=== PATIENT | male | born 1945 | race Caucasian/White ===

== ENCOUNTER 2020-03-02 17:27 | Inpatient (IN) | payer BC ==
[2020-03-02] VITALS: BP 115/85
[~2020-03-02] VITALS: Ht 162.6 cm; Wt 75.7 kg
--- NOTE | ~2020-03-02 | PROC ---
[address] [address] PROCEDURE REPORT Name: DAVID DOMINGO Room: [address] IN .R.#: [id number] Admission: 03/02/20 Attend Phys: Claire Simmons MD Discharge: Date of : 43 Report #: [id number] THIS REPORT FOR: //name// cc: Physician not on staff Physician not on staff ~ THIS REPORT FOR: //name// For GI report, please see the Provation report in Perceptive 7 content. By: [id number] Records Staff [facility] /KISHAN
--- NOTE | ~2020-03-02 | PROC ---
[address] [address] PROCEDURE REPORT Name: DAVID DOMINGO Room: [address] IN .R.#: [id number] Admission: 03/02/20 Attend Phys: Claire Simmons MD Discharge: Date of : 43 Report #: [id number] THIS REPORT FOR: //name// cc: Physician not on staff Physician not on staff ~ THIS REPORT FOR: //name// For GI report, please see the Provation report in Perceptive 7 content. By: 1120Medical Records Staff [facility] /KISHAN
[2020-03-02 17:37] VITALS: BP 104/44
[2020-03-02] MEDS ORDERED: COREG6.25 MG PO (17:46)
[2020-03-02] MEDS ORDERED: SPIRONOLACTONE25 MG PO (17:47)
[2020-03-02] MEDS ORDERED: TRIAMTERENE/HCT1 CA1 PO (17:47)
[2020-03-02] MEDS ORDERED: HYDRALAZINE 2525 M1 PO (17:47)
[2020-03-02] MEDS ORDERED: ALLOPURINOL 10100 M3 PO (17:47)
[2020-03-02] MEDS ORDERED: PRAVACHOL 20 MG20 M1 PO (17:47)
[2020-03-02 18:07] LABS: ABSOLUTE BASOPHILS 0.1 thou/uL (0.0-0.2); ABSOLUTE LYMPHOCYTES 1.9 thou/uL (0.8-5.3); ABSOLUTE MONOCYTES 0.4 thou/uL (0.0-1.2); ABSOLUTE NEUTROPHILS 9.4 thou/uL (1.6-8.1); BASOPHILS 0.7 %; EOSINOPHILS 0.3 %; LYMPHOCYTES 16.5 %; MCH 34.2 pg (26.0-34.0); MCHC 34.2 g/dL (28.0-37.0); MONOCYTES 3.2 %; MPV 7.9 fl. (7.2-11.1); NUCLEATED RBCS 0 /100WBC; PLATELET COUNT* 332 thou/uL (150-400); POLYS 79.3 %; RBC 1.94 mil/uL (4.50-6.00); RDW-CV 13.6 % (10.5-14.5); WBC 11.8 thou/uL (4.0-11.0)
[2020-03-02 18:14] LABS: CALCIUM 8.9 mg/dL (8.5-10.1); CREATININE 3.8 mg/dL (0.6-1.3); POTASSIUM 4.2 mmol/L (3.5-5.1)
[2020-03-02 18:17] LABS: APTT 22.9 Seconds (25.0-31.3); HEMOGLOBIN 6.6 gm/dL (14.0-18.0); INR 1.1; PROTIME 11.1 Seconds (9.20-11.50)
[2020-03-02 18:18] LABS: HEMATOCRIT 19.4 % (42.0-52.0)
[2020-03-02 18:25] LABS: TOTAL BILIRUBIN 0.3 mg/dL (<0.1-1.0); TOTAL PROTEIN 6.6 g/dL (6.4-8.2)
[2020-03-02 19:54] LABS: URINE BILIRUBIN NEGATIVE (Negative); URINE BLOOD NEGATIVE (Negative); URINE CLARITY CLEAR; URINE COLOR YELLOW; URINE GLUCOSE-RANDOM NEGATIVE (Negative); URINE KETONES NEGATIVE (Negative); URINE LEUKOCYTES-REFLEX NEGATIVE (Negative); URINE NITRITE-REFLEX NEGATIVE (Negative); URINE PROTEIN NEGATIVE (Negative); URINE SPECIFIC GRAVITY 1.015 (1.005-1.030); URINE UROBILINOGEN 0.2 E.U./dl (0.2-1.0)
[2020-03-02 20:00] VITALS: BP 110/70; BP 115/85
[2020-03-02 23:45] VITALS: BP 88/45
[2020-03-03] VITALS (8 sets, daily range): BP systolic 83–126; BP diastolic 41–70
[2020-03-03 07:51] LABS: MCH 33.4 pg (26.0-34.0); MCHC 34.3 g/dL (28.0-37.0); MCV 97.4 fL (80.0-100.0); MPV 7.6 fl. (7.2-11.1); RBC 2.04 mil/uL (4.50-6.00); RDW-CV 15.4 % (10.5-14.5); WBC 10.4 thou/uL (4.0-11.0)
[2020-03-03 07:53] LABS: CALCIUM 8.4 mg/dL (8.5-10.1); CREATININE 3.8 mg/dL (0.6-1.3); MAGNESIUM 2.1 mg/dL (1.8-2.4); POTASSIUM 3.7 mmol/L (3.5-5.1)
[2020-03-03 07:54] LABS: HEMATOCRIT 19.8 % (42.0-52.0); HEMOGLOBIN 6.8 gm/dL (14.0-18.0)
[2020-03-03 09:25] LABS: % SATURATION 57 % (20-39); IRON 134 ug/dL (50-175)
[2020-03-03 15:34] LABS: HEMATOCRIT 22.6 % (42.0-52.0); HEMOGLOBIN 7.6 gm/dL (14.0-18.0)
--- NOTE | 2020-03-03 15:44 | EKG ---
[place] [address] ELECTROCARDIOGRAM REPORT Name: DAVID DOMINGO Room: [address] ADM IN M.R.#: [id number] Admission: 03/02/20 Attend Phys: Claire Simmons, Discharge: Date of : 43 Date of Service: 03/02/20 1735 Report #: [id number] THIS REPORT FOR: //name// [facility] ED Test Date: 2020-03-02 Test Time: 17:35:47 Pat Name: DAVID JOSE L Department: Room: [facility] Gender: M Cps Team Lead: KISHAN : 1945 Requested By: Hakeem Peterson Order Number: [id number] MD: Javy Gallegos Measurements Intervals [place] Rate: 85 P: 73 [place]: 140 QRS: 39 QRSD: 87 T: 59 QT: 354 QTc: 421 Interpretive Statements Sinus rhythm Baseline wander in lead(s) II,III,aVF,V4 No previous ECG available for comparison Electronically Signed On 03-03-2020 15:44:26 CDT by Javy Gallegos [email or web address] <ELECTRONICALLY SIGNED> By: Javy Gallegos MD, FACC 03/03/20 1544 1735 1735 Javy Gallegos MD, [facility] /EPI
[2020-03-03 16:09] LABS: URINE POTASSIUM-RANDOM 46.8 mmol/L
[2020-03-04 04:20] VITALS: BP 100/60
[2020-03-04 08:00] VITALS: BP 146/78
[2020-03-04 11:53] LABS: MCH 33.9 pg (26.0-34.0); MCHC 35.3 g/dL (28.0-37.0); MPV 7.5 fl. (7.2-11.1); RBC 1.95 mil/uL (4.50-6.00); RDW-CV 15.7 % (10.5-14.5); WBC 7.7 thou/uL (4.0-11.0)
[2020-03-04 12:05] LABS: HEMATOCRIT 18.7 % (42.0-52.0); HEMOGLOBIN 6.6 gm/dL (14.0-18.0)
[2020-03-04 12:10] LABS: ALBUMIN 2.5 g/dL (3.4-5.0); CALCIUM 7.9 mg/dL (8.5-10.1); CREATININE 2.9 mg/dL (0.6-1.3); MAGNESIUM 1.9 mg/dL (1.8-2.4); POTASSIUM 3.5 mmol/L (3.5-5.1); TOTAL BILIRUBIN 0.5 mg/dL (<0.1-1.0); TOTAL PROTEIN 5.3 g/dL (6.4-8.2)
[2020-03-04 13:01] VITALS: BP 91/48
[2020-03-04 13:14] VITALS: BP 104/55; BP 105/47; BP 107/49; BP 117/57
[2020-03-04 17:57] LABS: HEMATOCRIT 22.6 % (42.0-52.0)
[2020-03-04 20:00] VITALS: BP 97/50
[2020-03-05 00:10] VITALS: BP 100/52
[2020-03-05 04:00] VITALS: BP 103/56
[2020-03-05 04:15] LABS: HEMATOCRIT 20.3 % (42.0-52.0); HEMOGLOBIN 7.1 gm/dL (14.0-18.0); MCH 33.3 pg (26.0-34.0); MCHC 35.1 g/dL (28.0-37.0); MCV 95.1 fL (80.0-100.0); MPV 7.8 fl. (7.2-11.1); RBC 2.14 mil/uL (4.50-6.00); RDW-CV 15.2 % (10.5-14.5); WBC 8.7 thou/uL (4.0-11.0)
[2020-03-05 04:35] LABS: CALCIUM 7.9 mg/dL (8.5-10.1); CREATININE 3.3 mg/dL (0.6-1.3); POTASSIUM 3.6 mmol/L (3.5-5.1)
[2020-03-05 08:00] VITALS: BP 96/43
[2020-03-05 14:11] LABS: HEMATOCRIT 20.8 % (42.0-52.0); HEMOGLOBIN 7.2 gm/dL (14.0-18.0)
--- NOTE | 2020-03-05 15:35 | CON ---
[address] [address] CONSULTATION Name: DAVID DOMINGO Room: [address] IN ..#: [id number] Admission: 03/02/20 Attend Phys: Claire Simmons MD Discharge: Date of : 43 Report #: [id number] THIS REPORT FOR: //name// cc: Physician not on staff Physician not on staff ~ THIS REPORT FOR: //name// CC: Claire ARRIOLA Physician staff HISTORY OF PRESENT ILLNESS: This is a pleasant 74-year-old gentleman with past medical history significant for hypertension, hyperlipidemia, CKD, who was brought into the hospital with profound dizziness. After admission, the patient noted that for 5 days before the admission, he began having dark colored runny stool. The patient reports one episode of similar dark stool in the past. He has never had an EGD or colonoscopy in the past. The patient, however, does report weight loss of about 20-25 pounds in the last 3 months. He denies any abdominal pain, hematemesis or hematochezia. PAST MEDICAL HISTORY: Hyperlipidemia, hypertension, CKD. PAST SURGICAL HISTORY: Right knee replacement in 2017. SOCIAL HISTORY: The patient denies smoking, alcohol or recreational drug use. FAMILY HISTORY: There is no family history of colon cancer or Freeman related neoplasia. REVIEW OF SYSTEMS: A comprehensive 10-point review of systems is negative except for what was mentioned in the HPI. PHYSICAL EXAMINATION: GENERAL: The patient is alert, awake, oriented x 3. HEENT: Pupils are equal, round, reactive to light and accommodation. Mucous membranes are moist. There is no congestion. LUNGS: Clear to auscultation bilaterally. CARDIOVASCULAR: Rate and rhythm regular, S1, S2 present. ABDOMEN: Soft. There is no distention, guarding or rigidity. EXTREMITIES: Warm, well perfused. There is no edema. SKIN: Warm and dry. 1 LABORATORY DATA: Hemoglobin 6.8, hematocrit 19.8, platelet count 277, WBC count 10.4, INR 1.1. Sodium 141, potassium 3.7, chloride 108, bicarbonate 29, BUN 76, creatinine 3.8. IMAGING: CT abdomen and pelvis, this [place] [address] CONSULTATION Name: DAVID DOMINGO Room: [address]#: [id number] Admission: 03/02/20 Attend Phys: Claire Simmons MD Discharge: Date of : 43 Report #: [id number] ASSESSMENT AND PLAN: Pleasant 74-year-old male presenting with anemia and melena. The patient also reports weight loss and loss of appetite. He has never had an EGD or colonoscopy in the past. I would recommend getting an EGD and colonoscopy to investigate this further. Further recommendations will be based on results of these tests. <ELECTRONICALLY SIGNED> By: Demetrio Nguyen MD 03/05/20 1535 1139 1244MD ghazala Kwan
[2020-03-05 16:39] VITALS: BP 103/56
[2020-03-05 22:20] VITALS: BP 106/72
[2020-03-06] VITALS (8 sets, daily range): BP systolic 90–134; BP diastolic 44–63
[2020-03-06 04:42] LABS: MCH 33.6 pg (26.0-34.0); MCHC 34.7 g/dL (28.0-37.0); MCV 96.7 fL (80.0-100.0); MPV 8.1 fl. (7.2-11.1); RBC 1.76 mil/uL (4.50-6.00); WBC 9.3 thou/uL (4.0-11.0)
[2020-03-06 04:46] LABS: HEMOGLOBIN 5.9 gm/dL (14.0-18.0)
[2020-03-06 04:56] LABS: CALCIUM 7.6 mg/dL (8.5-10.1); CREATININE 2.9 mg/dL (0.6-1.3); MAGNESIUM 1.9 mg/dL (1.8-2.4); POTASSIUM 4.2 mmol/L (3.5-5.1)
[2020-03-06 11:31] LABS: HEMOGLOBIN 6.7 gm/dL (14.0-18.0)
[2020-03-06 11:32] LABS: HEMATOCRIT 19.3 % (42.0-52.0)
--- NOTE | 2020-03-06 17:06 | PATH ---
[place] [address] PATHOLOGY RPT PROCEDURE Name: WESLEY SABA Room: [address] IN M.R.#: [id number] Admission: 03/02/20 Date of : 43 Discharge: Report #: [id number] Path Case #: [id number] [facility] Accession Number: [id number] . 01 Material submitted: . PART A: duodenum - DUODENAL BIOPSY PART B: stomach - GASTRIC BIOPSY . 01 Clinical history: . A. R/O CELIAC DISEASE GI BLEED, ANEMIA, DIZZINESS . 02 Diagnosis: A. Duodenal biopsy: - Minimal nonspecific active duodenitis without significant intraepithelial lymphocytosis or villous atrophy and negative for granulomas, viral inclusions and dysplasia. See comment. . B. Gastric biopsy: - Mild nonspecific chronic gastritis, negative for Helicobacter pylori organisms, granulomas and dysplasia. (MALGORZATA:elgin; 03/06/2020) . Special stain: H. pylori immuno on B QMS 03/06/2020 1235 Local . 02 Electronically signed: . Thanh Espino MD, Pathologist NPI- [id number] . 01 Gross description: . A. The specimen is received in formalin, labeled "Wesley Saab, duodenal biopsy" and consists of 3 fragments of mejía tissue measuring between 0.3 x 0.2 cm and 0.6 x 0.3 cm which are entirely submitted in A1. . B. The specimen is received in formalin, labeled "Wesley Saab, gastric biopsy" and consists of 3 fragments of mejía tissue measuring between 0.3 x 0.2 cm and 0.4 x 0.2 cm which are entirely submitted in B1. (SDY; 03/05/2020) SYU/SYU 03/05/2020 1701 Local . 02 Pathologist provided ICD-10: K29.80, K29.50 . 02 CPT . 727018, 614899, L11647 Specimen Comment: A courtesy copy of this report has been sent to [phone], [phone], [place] [address] PATHOLOGY RPT PROCEDURE Name: WESLEY SAAB Room: [address] IN [facility]#: [id number] Admission: 03/02/20 Date of : 43 Discharge: Report #: [id number] Path Case #: [id number] Specimen Comment: [id number], Specimen Comment: Report sent to ,DR ELMORE / DR ARRIOLA Performed at: [address], [place], [place] [id number] MD Khoi Julian MD Phone: [phone] Performed at: [address] [address] [address], [place], [place] [id number] MD Thanh Espino MD Phone: [phone]
[2020-03-06 18:52] LABS: HEMATOCRIT 22.4 % (42.0-52.0); HEMOGLOBIN 7.6 gm/dL (14.0-18.0)
[2020-03-07 04:00] VITALS: BP 112/62
[2020-03-07 04:29] LABS: CALCIUM 7.9 mg/dL (8.5-10.1); CREATININE 2.7 mg/dL (0.6-1.3); MAGNESIUM 1.9 mg/dL (1.8-2.4); POTASSIUM 4.1 mmol/L (3.5-5.1)
[2020-03-07 04:40] LABS: HEMATOCRIT 21.9 % (42.0-52.0); HEMOGLOBIN 7.6 gm/dL (14.0-18.0); MCHC 34.6 g/dL (28.0-37.0); MCV 92.5 fL (80.0-100.0); MPV 8.1 fl. (7.2-11.1); RBC 2.37 mil/uL (4.50-6.00); RDW-CV 16.5 % (10.5-14.5); WBC 8.5 thou/uL (4.0-11.0)
[2020-03-07 08:30] VITALS: BP 143/74
[2020-03-07 10:57] VITALS: BP 143/74
[2020-03-07 12:14] VITALS: BP 123/68
[2020-03-07 15:46] LABS: HEMOGLOBIN 7.8 gm/dL (14.0-18.0)
[2020-03-07 16:21] VITALS: BP 102/62
[2020-03-07 20:30] VITALS: BP 131/59
[2020-03-08] VITALS: BP 105/63
[2020-03-08 04:00] VITALS: BP 106/58
[2020-03-08 05:06] LABS: HEMATOCRIT 20.9 % (42.0-52.0); HEMOGLOBIN 7.1 gm/dL (14.0-18.0)
[2020-03-08 05:28] LABS: HEMATOCRIT 20.7 % (42.0-52.0); HEMOGLOBIN 7.1 gm/dL (14.0-18.0); MCH 32.3 pg (26.0-34.0); MCHC 34.6 g/dL (28.0-37.0); MCV 93.4 fL (80.0-100.0); MPV 7.6 fl. (7.2-11.1); RBC 2.21 mil/uL (4.50-6.00); RDW-CV 16.7 % (10.5-14.5); WBC 10.2 thou/uL (4.0-11.0)
[2020-03-08 05:34] LABS: ALBUMIN 2.2 g/dL (3.4-5.0); CALCIUM 8.3 mg/dL (8.5-10.1); CREATININE 2.6 mg/dL (0.6-1.3); POTASSIUM 4.5 mmol/L (3.5-5.1); TOTAL BILIRUBIN 0.5 mg/dL (<0.1-1.0); TOTAL PROTEIN 4.9 g/dL (6.4-8.2)
[2020-03-08 08:05] VITALS: BP 125/63
[2020-03-08] MEDS ORDERED: FERROUS SULFAT325 MG PO (08:52)
[2020-03-08] MEDS ORDERED: COLACE100 MG PO (08:52)
[2020-03-08] MEDS ORDERED: OMEPRAZOLE40 MG PO (08:52)
[2020-03-08 09:45] VITALS: BP 111/60; BP 112/52; BP 115/54
[2020-03-08 14:08] LABS: HEMATOCRIT 26.2 % (42.0-52.0)
[2020-03-08 15:56] VITALS: BP 107/50
[2020-03-08 21:26] VITALS: BP 131/74
[2020-03-09 00:26] VITALS: BP 136/78
[2020-03-09 03:45] VITALS: BP 144/83
[2020-03-09 04:59] LABS: HEMOGLOBIN 8.3 gm/dL (14.0-18.0)
[2020-03-09 11:13] LABS: HEMATOCRIT 24.1 % (42.0-52.0); HEMOGLOBIN 8.4 gm/dL (14.0-18.0)
[2020-03-09 12:05] VITALS: BP 153/78
[2020-03-09 13:17] VITALS: BP 153/78
== END 2020-03-09 14:19 | disposition home or self-care (01) | DRG 377 ==
LOC: M.ERS 17:27 → M.2W 18:40 → M.TBA-ER 18:40 → M.2W 19:47 → M.ORTHSURG 03-05 15:11 → M.2W 03-06 18:31
PROVIDERS: Family Medicine; Internal Medicine; Nurse Practitioner Adult Health; ADMIT Internal Medicine; ATTEND Internal Medicine
PROC: 0DJD8ZZ Inspection of Lower Intestinal Tract, Via Natural or Artificial Opening Endoscopic (ICD-10-PCS; principal; 2020-03-04)
PROC: 0DB98ZX Excision of Duodenum, Via Natural or Artificial Opening Endoscopic, Diagnostic (ICD-10-PCS; principal; 2020-03-04)
PROC: 0DB68ZX Excision of Stomach, Via Natural or Artificial Opening Endoscopic, Diagnostic (ICD-10-PCS; principal; 2020-03-04)
PROC: 30233N1 Transfusion of Nonautologous Red Blood Cells into Peripheral Vein, Percutaneous Approach (ICD-10-PCS; principal; 2020-03-04)
DX: K26.4 Chronic or unspecified duodenal ulcer with hemorrhage (principal); G92 Toxic encephalopathy; N17.0 Acute kidney failure with tubular necrosis; D62 Acute posthemorrhagic anemia; Z20.828 Contact with and (suspected) exposure to other viral communicable diseases; E78.5 Hyperlipidemia, unspecified; N18.9 Chronic kidney disease, unspecified; Z96.651 Presence of right artificial knee joint; I12.9 Hypertensive chronic kidney disease with stage 1 through stage 4 chronic kidney disease, or unspecified chronic kidney disease; K64.9 Unspecified hemorrhoids; Z88.8 Allergy status to other drugs, medicaments and biological substances; Z79.899 Other long term (current) drug therapy